=== PATIENT | male | born 1995 | race Caucasian/White ===

== ENCOUNTER 2017-11-07 20:16 | Emergency (ER) | payer OTHER ==
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
== END 2017-11-07 21:31 | disposition home or self-care (01) ==
LOC: FB.ED 20:16
DX: S61.326A Laceration with foreign body of right little finger with damage to nail, initial encounter (principal); W26.0XXA Contact with knife, initial encounter
CPT/HCPCS: 12002; 99283